=== PATIENT | female | born 1970 | race Caucasian/White ===

== ENCOUNTER 2025-03-24 23:08 | Emergency (ER) | payer MEDICAID, OTHER ==
[~2025-03-24] VITALS: Ht 170.2 cm; Wt 60.0 kg
[2025-03-24 23:11] VITALS: O2SAT 98
[2025-03-25 00:04] LABS: BASOPHILS % 0.7 % (0.0-2.0); EOSINOPHILS % 2.1 % (0.0-5.0); HEMATOCRIT. 41.2 % (36.0-48.0); HEMOGLOBIN. 14.0 g/dL (12.0-16.0); LYMPHOCYTES % 26.7 % (20.0-50.0); MEAN PLATELET VOLUME 8.8 fl (7.4-10.4); MONOCYTES % 7.5 % (2.0-8.0); NEUTROPHILS % 63.0 % (40.0-76.0); PLATELET 221 x1000/uL (130-400); RED BLOOD CELL COUNT 4.56 mill/uL (4.2-5.4); RED CELL DISTRIBUTION WIDTH 13.4 % (11.6-14.6)
[2025-03-25] MEDS: SODIUM CHLORIDE 0.9% 1,000 ML IV ONE (00:11)
[2025-03-25 00:12] LABS: CREATININE 1.2 mg/dL (0.6-1.0)
[2025-03-25] MEDS: KETOROLAC 15MG/ML VIAL IV ONE (00:12)
[2025-03-25] MEDS: TETANUS, DIPHTHERIA, PERTUSSIS VAC/PF 0.5ML (>10YR OLD) IM ONE (00:12)
[2025-03-25 00:13] LABS: UREA NITROGEN BLOOD 15 mg/dL (9-23)
[2025-03-25 00:14] LABS: ASPARTATE AMINOTRANSFERASE 21 IU/L (<34); BILIRUBIN DIRECT 0.1 mg/dL (<=3.0)
[2025-03-25 00:15] LABS: BILIRUBIN TOTAL 0.4 mg/dL (0.1-1.0); PROTEIN TOTAL 6.7 g/dL (6.0-8.3)
[2025-03-25 01:48] LABS: TROPONIN I HIGH SENSITIVITY 12 ng/L (3.0-34)
[2025-03-25] MEDS: METRONIDAZOLE 500 MG PREMIX 100 ML IV ONE (02:16)
[2025-03-25] MEDS: SODIUM CHLORIDE 0.9% (SEPSIS BOLUS) IV ONE (02:21)
[2025-03-25 02:40] LABS: CLARITY URINE CLEAR (CLEAR); COLOR URINE YELLOW (YELLOW); GLUCOSE URINE NEGATIVE (NEGATIVE); KETONES URINE NEGATIVE (NEGATIVE); LEUKOCYTE ESTERASE URINE NEGATIVE (NEGATIVE); NITRITE URINE POSITIVE (NEGATIVE); OCCULT BLOOD URINE NEGATIVE (NEGATIVE); PH URINE 6.0 (4.5-8.0); PROTEIN URINE NEGATIVE (NEGATIVE); SPECIFIC GRAVITY URINE 1.044 (1.005-1.030); UROBILINOGEN URINE 1.0 E.U./dL (0.2-1.0)
[2025-03-25] MEDS: LEVOFLOXACIN 750MG PREMIX 150 ML IV ONE (02:48)
[2025-03-25] MEDS: IOHEXOL-300 100 ML BOTTLE ONE (03:10)
[2025-03-25 03:15] VITALS: BP 150/90; PULSE 86; RESP 16; TEMP 36.7; O2SAT 96
[2025-03-25 03:35] LABS: *AMPHETAMINES SCREEN URINE PRESUMPTIVE POSITIVE (NEGATIVE); *BARBITURATES SCREEN URINE NEGATIVE (NEGATIVE); *BENZODIAZEPINES SCREEN URINE NEGATIVE (NEGATIVE); *COCAINE SCREEN URINE NEGATIVE (NEGATIVE)
[2025-03-25 03:36] LABS: CANNABINOID URINE SCREEN NEGATIVE (NEGATIVE); ECSTASY MDMA SCREEN URINE CONF.TEST INDICATED (NEGATIVE); METHADONE URINE SCREEN NEGATIVE (NEGATIVE); OPIATES URINE SCREEN NEGATIVE (NEGATIVE); PHENCYCLIDINE URINE SCREEN NEGATIVE (NEGATIVE)
[2025-03-25 03:44] LABS: SQUAMOUS EPITHELIAL CELL URINE FEW /lpf (RARE/1+)
[2025-03-25 03:45] LABS: BACTERIA URINE 3+; RBC URINE 0-2 /hpf (0-2)
== END 2025-03-25 03:30 | disposition short-term general hospital (02) ==
LOC: ER 23:08 → CMPBEDREQ 03-25 07:22
DX: S36.029A Unspecified contusion of spleen, initial encounter (principal); R10.33 Periumbilical pain; D73.5 Infarction of spleen; F15.90 Other stimulant use, unspecified, uncomplicated; R06.02 Shortness of breath; Z88.0 Allergy status to penicillin; Z79.899 Other long term (current) drug therapy; Y24.0XXA Airgun discharge, undetermined intent, initial encounter; Y93.89 Activity, other specified; Y92.89 Other specified places as the place of occurrence of the external cause; Y99.8 Other external cause status
CPT/HCPCS: 80076; 80048; 80320; 83880; 83605; 83690; 85025; 84484; 36415; 71045; 93005; 99285; 80305; 81003; 87040; 87086; 71260; 74177; 90715; 96367; 90471; 96361; 96365; 96375; J7030 ×2; Q9967; J1885; J3490; J1956; G0480